=== PATIENT | male | born 1960 | race African-American/Black ===

== ENCOUNTER 2023-07-15 17:56 | Emergency (ER) | payer OTHER, MEDICARE ==
[~2023-07-15] VITALS: Ht 172.7 cm; Wt 77.1 kg
[2023-07-15 18:30] LABS: EOSINOPHILS # (AUTO) 0.7 K/uL (0.0-0.7); EOSINOPHILS % (AUTO) 16.7 % (0.0-7.0); HEMATOCRIT 42.1 % (36.7-47.1); HEMOGLOBIN 14.2 g/dL (12.5-16.3); LYMPHOCYTES # (AUTO) 1.7 K/uL (0.8-4.8); LYMPHOCYTES % (AUTO) 38.3 % (20.5-51.5); MEAN CORPUSCULAR HEMOGLOBIN 34.5 uug (23.8-33.4); MEAN CORPUSCULAR HGB CONC 34 g/dL (32.5-36.3); MONOCYTES # (AUTO) 1.7 K/uL (0.1-1.30); MONOCYTES % (AUTO) 38.7 % (0.0-11.0); NEUTROPHILS # (AUTO) 0.3 K/uL (1.8-8.9); NEUTROPHILS % (AUTO) 6.3 % (38.5-71.5); PLATELET COUNT (AUTO) 98 K/uL (152-348); RED BLOOD CELL COUNT(AUTO) 4.12 MIL/uL (4.06-5.63); RED CELL DISTRIBUTION WIDTH 13.8 % (12.1-16.2); WHITE BLOOD COUNT (AUTO) 4.4 K/uL (3.6-10.2)
[2023-07-15 18:36] VITALS: O2SAT 96
[2023-07-15 18:42] LABS: DIFFERENTIAL COMMENT 1
[2023-07-15 18:53] LABS: CARBON DIOXIDE 26 mmol/L (21-32); CHLORIDE 103 mmol/L (98-107); CREATININE 1.1 mg/dL (0.6-1.3); GLUCOSE 129 mg/dL (74-106); POTASSIUM 2.9 mmol/L (3.5-5.1); SODIUM SERUM 143 mmol/L (136-145); UREA NITROGEN, BLOOD 10 mg/dL (7-18)
[2023-07-15] MEDS ORDERED: NITROGLYCERIN 0.4 MG/TAB BOTTLE SL ONE ×2 (19:00→19:09)
[2023-07-15] MEDS ORDERED: FAMOTIDINE. 20 MG/2 ML VIAL IV ONE ×2 (19:00→19:09)
[2023-07-15 19:04] LABS: ALANINE AMINOTRANSFERASE 62 U/L (16-63); ALBUMIN 3.6 g/dL (3.4-5.0); ALKALINE PHOSPHATASE 96 U/L (50-136); ASPARTATE AMINOTRANSFERASE 144 U/L (15-37); BILIRUBIN,DIRECT 0.4 mg/dL (0.0-0.2); BILIRUBIN,TOTAL 0.8 mg/dL (0.2-1.0); CALCIUM 9.4 mg/dL (8.5-10.1); TOTAL PROTEIN, SERUM 7.2 g/dL (6.4-8.2)
[2023-07-15 19:08] LABS: MAGNESIUM 1.7 mg/dL (1.8-2.4)
[2023-07-15 19:23] LABS: LYMPHOCYTES % (MANUAL) 20 % (20-40); MONOCYTES % (MANUAL) 17 % (2-10); NEUTROPHILS % (MANUAL) 63 % (42-75); PLATELET ESTIMATE MARKED DECREASED
[2023-07-15 19:24] LABS: ANISOCYTOSIS 1+
[2023-07-15] MEDS ORDERED: POTASSIUM CHLORIDE 20 MEQ TAB.PRT.SR PO ONE (19:30)
[2023-07-15 19:31] VITALS: BP 154/107
[2023-07-15] MEDS ORDERED: POTASSIUM CHLORIDE 20 MEQ TAB.PRT.SR ONE (19:32)
[2023-07-15] MEDS ORDERED: THIAMINE HCL 200 MG/2 ML VIAL ONE (19:42)
[2023-07-15] MEDS ORDERED: MAGNESIUM SULFATE/D5W 100 ML IV SCH (19:45)
[2023-07-15] MEDS ORDERED: THIAMINE HCL 200 MG/2 ML VIAL IV ONE (19:45)
[2023-07-15] MEDS ORDERED: IV NORMAL SALINE 100 ML BAG IV ONE (19:45)
[2023-07-15] MEDS ORDERED: NITROGLYCERIN OINT 1 GM PACKET TP ONE (20:45)
== END 2023-07-15 21:38 | disposition left against medical advice (07) ==
LOC: ER 17:57
DX: R07.89 Other chest pain (principal); I20.0 Unstable angina; E87.6 Hypokalemia; F10.129 Alcohol abuse with intoxication, unspecified; F10.10 Alcohol abuse, uncomplicated; E83.42 Hypomagnesemia; R94.31 Abnormal electrocardiogram [ECG] [EKG]; Z79.1 Long term (current) use of non-steroidal anti-inflammatories (NSAID); Y90.8 Blood alcohol level of 240 mg/100 ml or more
CPT/HCPCS: 36415; 70030-TC; 71045; 83690; 83735; 84484; 85025; 93005; A4606; A4663; G0480; J3411; J3475; J3490; J7040